=== PATIENT | female | born 1995 | race Caucasian/White ===

== ENCOUNTER 2020-12-15 22:08 | Emergency (ER) | payer OTHER ==
[2020-12-15 22:15] VITALS: BP 130/82; PULSE 85; TEMP 98.1; BMI 23.6
[2020-12-15] MEDS ORDERED: predniSONE 20 MG TABLET (UD) PO ONE (22:49)
[2020-12-15] MEDS ORDERED: FAMOTIDINE 20 MG TABLET PO ONE (22:49)
[2020-12-15] MEDS ORDERED: FAMOTIDINE 20 MG TABLET ONE (22:55)
[2020-12-15] MEDS ORDERED: predniSONE 20 MG TABLET (UD) ONE (22:55)
== END 2020-12-15 23:10 | disposition home or self-care (01) ==
LOC: JER 22:08 → JERFT 22:08
DX: T78.40XA Allergy, unspecified, initial encounter (principal)
CPT/HCPCS: 99283-25